=== PATIENT | female | born 1980 | race Two or more races ===

== ENCOUNTER 2023-09-14 10:14 | Emergency (ER) | payer OTHER, BC ==
[~2023-09-14] VITALS: Ht 2.5 cm; Wt 63.5 kg
[2023-09-14 13:50] VITALS: BP 104/69
== END 2023-09-14 13:50 | disposition home or self-care (01) ==
LOC: ED 10:14
DX: T65.891A Toxic effect of other specified substances, accidental (unintentional), initial encounter (principal); S05.91XA Unspecified injury of right eye and orbit, initial encounter; Y99.0 Civilian activity done for income or pay
CPT/HCPCS: 99283